=== PATIENT | female | born 1960 | race African-American/Black ===

== ENCOUNTER 2019-11-14 23:25 | Emergency (ER) | payer BC, MEDICAID ==
[~2019-11-14] VITALS: Ht 170.2 cm; Wt 78.0 kg
[2019-11-15] MEDS ORDERED: KETOROLAC 60MG/2ML VIAL IM STA (01:25)
[2019-11-15] MEDS ORDERED: ONDANSETRON HCL 4MG/2ML INJ IV STA (01:25)
[2019-11-15] MEDS ORDERED: SODIUM CHLORIDE 0.9% 1,000 ML IV ONE (01:25)
[2019-11-15 02:01] LABS: BASOPHILS % 0.7 % (0.0-2.0); EOSINOPHILS % 0.3 % (0.0-5.0); HEMOGLOBIN. 14.7 g/dL (12.0-16.0); LYMPHOCYTES % 18.7 % (20.0-50.0); MEAN CORPUSCULAR HEMOGLOBIN 29.8 pg (28.0-32.0); MEAN PLATELET VOLUME 9.6 fl (7.4-10.4); MONOCYTES % 4.1 % (2.0-8.0); NEUTROPHILS % 76.2 % (40.0-76.0); PLATELET 196 x1000/uL (130-400); RED BLOOD CELL COUNT 4.94 mill/uL (4.2-5.4); RED CELL DISTRIBUTION WIDTH 13.5 % (11.6-14.6)
[2019-11-15 02:05] LABS: CHLORIDE 108 mEq/L (98-107)
[2019-11-15 02:37] LABS: PROTHROMBIN TIME 10.4 sec (9.6-11.0)
[2019-11-15] MEDS ORDERED: METOCLOPRAMIDE HCL 10MG/2ML VIAL IV ONE (03:00)
[2019-11-15] MEDS ORDERED: DILTIAZEM HCL 5MG/ML 5ML VIAL IV ONE (03:00)
[2019-11-15] MEDS ORDERED: HALOPERIDOL LACTATE 5MG/ML VIAL IM ONE (03:00)
[2019-11-15 05:27] VITALS: BP 162/85
== END 2019-11-15 05:29 | disposition home or self-care (01) ==
LOC: ER 23:25
DX: R10.11 Right upper quadrant pain (principal); R11.2 Nausea with vomiting, unspecified; I10 Essential (primary) hypertension; Z87.19 Personal history of other diseases of the digestive system; Z88.0 Allergy status to penicillin; Z98.890 Other specified postprocedural states
CPT/HCPCS: 36415; 74176; 80053; 83690; 83880; 84484; 85025; 85610; 96361; 96372; 96374; 96375; 99285; J1885; J2405; J2765; J7030; J1630